=== PATIENT | male | born 1970 | race Caucasian/White ===

== ENCOUNTER → 2017-09-16 | Outpatient (CLI) | payer OTHER, BC ==
[2015-07-20 08:56] VITALS: BP 136/74
--- NOTE | 2017-09-16 13:02 | RAD ---
Left knee, 3 views, 09/16/2017: History: Knee pain and swelling, injury No fracture or dislocation is identified. There is soft tissue fullness in the suprapatellar bursa suggesting a joint effusion. IMPRESSION: 1. No acute bony abnormality is detected. 2. Probable knee joint effusion.
== END | disposition home or self-care (01) ==
LOC: DXRAD 11:49
PROVIDERS: ATTEND Physician Assistant
DX: M25.562 Pain in left knee (principal); M25.462 Effusion, left knee; X58.XXXA Exposure to other specified factors, initial encounter; Y93.67 Activity, basketball; Y92.89 Other specified places as the place of occurrence of the external cause; Y99.8 Other external cause status
CPT/HCPCS: 73562

== ENCOUNTER → 2017-10-15 | Outpatient (CLI) | payer OTHER, BC ==
[2015-07-20 08:56] VITALS: BP 136/74
--- NOTE | 2017-10-15 16:12 | RAD ---
AP view of the bilateral knees 10/15/2017 2:00 AM Indication: LEFT KNEE PAIN - BILATERAL KNEE, WORSE ON THE LEFT Comparison: None Findings: There is no fracture or dislocation identified. Articular surfaces are uninterrupted. Soft tissues are unremarkable. Impression: No evidence of acute osseous abnormality
== END | disposition home or self-care (01) ==
LOC: DXRAD 15:43
PROVIDERS: ATTEND Orthopaedic Surgery Sports Medicine
DX: M25.562 Pain in left knee (principal); M25.561 Pain in right knee
CPT/HCPCS: 73565

== ENCOUNTER → 2019-04-04 | Day surgery (SDC) | payer OTHER, BC ==
[~2019-04-04] MED LIST: ACETAMINOPHEN 325 MG TABLET PO PRN; ALBUTEROL SULFATE 2.5 MG/3 ML NEBU. NEB PRN; ATROPINE 0.5 MG/5 ML DISP.SYRIN. IV PRN; IV RINGERS SOLUTION,LACTATED 1,000 ML IV SCH; MIDAZOLAM HCL PF 2 MG/2 ML VIAL. IV PRN; ONDANSETRON PF 4 MG/2 ML VIAL. IV PRN; PHENOL ORAL SPRAY 177ML BOTTLE. MM PRN; PROPOFOL 10,000 MCG/ML (20ML) VIAL IV ONE; diphenhydrAMINE 50 MG/ML VIAL IV PRN
[2019-04-04 12:02] VITALS: BP 123/70
== END ==
LOC: SURG 10:33
PROVIDERS: ATTEND Internal Medicine Gastroenterology
DX: Z12.11 Encounter for screening for malignant neoplasm of colon (principal); D12.2 Benign neoplasm of ascending colon; D12.5 Benign neoplasm of sigmoid colon; Z98.890 Other specified postprocedural states; Z87.891 Personal history of nicotine dependence; Z72.89 Other problems related to lifestyle
CPT/HCPCS: 45385; J2704; J7120